=== PATIENT | male | born 1995 | race Caucasian/White ===

== ENCOUNTER 2021-08-27 21:54 | Emergency (ER) | payer BC ==
[~2021-08-27] VITALS: Ht 185.4 cm; Wt 83.9 kg
--- NOTE | 2021-08-27 22:20 | NUR ---
TO ER BED 14. BIBS. DIFFICULT TO BREATH D/T PAIN. GOT KNEED ON LEFT LATERAL CHEST DURING ON TUESDAY. PT IS ALERT AND ORIENTED. BREATHING IS EVEN AND NONLABORED. CONNECTED TO MONITOR. AWAITING MD KAYE
--- NOTE | 2021-08-27 23:26 | NUR ---
Patient discharged to home in stable condition. Written and verbal after care instructions given. Patient verbalizes understanding of instruction.
[2021-08-27 23:35] VITALS: BP 141/78
== END 2021-08-27 23:36 | disposition home or self-care (01) ==
LOC: ER 22:00
DX: R07.89 Other chest pain (principal); R07.81 Pleurodynia; F12.90 Cannabis use, unspecified, uncomplicated
CPT/HCPCS: 71100-TC